=== PATIENT | female | born 1950 | race Caucasian/White ===

== ENCOUNTER 2017-08-18 13:30 | Outpatient (RCR) | payer MEDICARE, SELFPAY ==
[2017-08-11 13:27] VITALS: BP 162/94; PULSE 63; RESP 18; TEMP 36.9; BMI 46.4
--- NOTE | 2017-08-11 15:36 | PCM.WC.HP ---
(1) Non-pressure chronic ulcer of other part of right foot with fat layer exposed Status: Acute Current Visit: Yes Code(s): L97.512 - Non-pressure chronic ulcer of other part of right foot with fat layer exposed (2) Type 2 diabetes mellitus with foot ulcer Status: Acute Current Visit: Yes Qualifiers: Diabetes mellitus senior care insulin use: unspecified senior care insulin use status Qualified Code(s): E11.621 - Type 2 diabetes mellitus with foot ulcer; L97.509 - Non-pressure chronic ulcer of other part of unspecified foot with unspecified severity Code(s): E11.621 - Type 2 diabetes mellitus with foot ulcer; L97.509 - Non-pressure chronic ulcer of other part of unspecified foot with unspecified severity (3) Type 2 diabetes mellitus with diabetic peripheral angiopathy without gangrene Status: Chronic Current Visit: Yes Qualifiers: Diabetes mellitus senior care insulin use: unspecified long term care pharmacist insulin use status Qualified Code(s): E11.51 - Type 2 diabetes mellitus with diabetic peripheral angiopathy without gangrene Code(s): E11.51 - Type 2 diabetes mellitus with diabetic peripheral angiopathy without gangrene (4) Type 2 diabetes mellitus with diabetic polyneuropathy Status: Chronic Current Visit: Yes Qualifiers: Diabetes mellitus long term care pharmacist insulin use: unspecified long term care pharmacist insulin use status Qualified Code(s): E11.42 - Type 2 diabetes mellitus with diabetic polyneuropathy Code(s): E11.42 - Type 2 diabetes mellitus with diabetic polyneuropathy (5) Peripheral vascular disease Status: Chronic Current Visit: Yes Code(s): I73.9 - Peripheral vascular disease, unspecified History of Present Illness Date of Service: 08/11/17 Chief Complaint: Non-healing diabetic foot ulcer R great toe History of Wound: 67 year old woman with uncontrolled type 2 diabetes presents with non-healing diabetic foot ulcer plantar R great toe. Has a known history of PAD with multiple stent placements in the late 1990s and early 2000s. Has been treated at [facility] in [place] with promogran and dry dressing every other day. Offloading with CAM boot (not wearing today). Pt was to undergo an arterial bypass in 2014, but had an [place] 3 days before the procedure was to be done. Vascular surgeon is Dr. Herring in [place]. Pt denies pus, malodor, warmth, pain. Denies N/V/F/C. Past Medical History Past Medical History: Chronic Problems Type 2 diabetes mellitus with diabetic peripheral angiopathy without gangrene (Chronic) Type 2 diabetes mellitus with diabetic polyneuropathy (Chronic) Peripheral vascular disease (Chronic) Surgical History: - - Multiple stents placed in arteries of legs in late and early 1999s as well as coronary artery stent placement in 2014. Lives: Spouse/ Significant Other Smoking Status: Former smoker Tobacco Use: Cigarettes - (quit 6 years ago) Alcohol: Rare Drugs: None Review of Systems Constitutional: Denies: Chills, Fever, Weight Change Eyes: Denies: Pain, Vision Change HEENT: Denies: Difficulty Hearing, Difficulty Swallowing, Sinus Congestion Cardiovascular: Denies: Chest Pain, Palpitations Respiratory: Denies: Cough, Shortness of Breath Gastrointestinal: Denies: Diarrhea, Nausea, Vomiting Genitourinary: Denies: Dysuria, Hematuria Musculoskeletal: Denies: Foot Pain Skin: Reports: Wounds - R great toe Neurological: Reports: Numbness - toes Endocrine: Denies: Heat/ Cold Intolerance, Polydipsia, Polyuria Hematologic/ Lymphatic: Reports: Hx of blood clot. Denies: Easy Bruising, Easy Bleeding - Physical Exam Vital Signs Temp Pulse Resp BP 98.4 F 63 18 162/94 H 08/11/17 13:27 08/11/17 13:27 08/11/17 13:27 08/11/17 13:27 General: Alert, Oriented x3, Cooperative, No apparent distress HEENT: Atraumatic, Normocephalic Extremities: No clubbing, No cyanosis, No edema, No Calf Tenderness, Diminished Peripheral Pulses Skin: Ulcer/ Wound - Plantar medial R great toe IPJ with no erythema, no calor, no purulent drainage, no malodor, minimal pain. No clinical signs of acute bacterial infection noted. See wound/edema assessment below. Chung grade 1 full thickness DFU Wound Measurements and Assessment WC - Nurse 1 - General Ulcer Measurement Start: 08/11/17 13:27 Freq: Status: Active Protocol: Activity Type Activity Date Activity User E-Sign Co-Sign Detail Recorded Client Recorded Date Recorded By Document 08/11/17 13:27 DV [id number] 08/11/17 13:47 DV 08/11/17 13:27 Wound Center Nurse 1 [Ulcer Assessment] #1 Right Great Toe- Plantar -Combined with other wound No -Current Size (cm) - Length 0.5 -Current Size (cm) - Width 0.3 -Current Size (cm) - Depth 0.2 -Total Square Cm 0.15 -Date of Last Picture (Recall this 08/11/17 field) -Photo Taken Yes -Epithelialization None Present -Tunneling No -Undermining/Tunneling No -Circular Undermining Yes -Classification - Thickness Full Thickness without Exposed Support Structure -Classification - Chung Grading ( Grade 2 Diabetic Ulcer) -Exudate Amt Small (1-33%) -Exudate Type Serosanguineous -Wound Margin Indistinct, Non -Visible -Granulation Amt None Present (0 %) -Granulation Quality N/A -Slough/Fibrin Yes -Necrosis Amt Large (67-100%) -Necrotic Tissue Type Adherent Slough -Structure Exposed None/Limited to Skin Breakdown -Texture (Dimple-wound Skin Appearance) No Abnormality Assessed -Moisture (Dimple-wound Skin Appearance No Abnormality ) Assessed -Color (Dimple-wound Skin Appearance) No Abnormality Assessed -Temperature (Dimple-wound Skin Cool/Cold Appearance) -Tenderness on Palpation (Dimple-wound No Skin Appearance) -Ulcer Cleansing Rinsed/ Irrigated with Saline -Foul Odor after Cleansing No -Anesthetic Used 4% Lidocaine Solution [Edema Assessment] -Lower Limb Edema Present No -Right Calf (cm) 35.0 -Right Ankle (cm) 18.2 -Left Calf (cm) 36.6 -Left Ankle (cm) 18.7 WC - Nurse 2 - General Ulcer CM Notes Start: 08/11/17 13:27 Freq: Status: Active Protocol: Activity Type Activity Date Activity User E-Sign Co-Sign Detail Recorded Client Recorded Date Recorded By Document 08/11/17 14:05 MW [id number] 08/11/17 14:16 MW 08/11/17 14:05 Wound Center Nurse 2 [Procedure/Treatment] #1 Right Great Toe- Plantar -Time 14:05 -Correct Patient Yes -Correct Side, Site, Position Yes -Correct Procedure Yes -Procedure Performed No -Post Debridement Size (cm) - Length 0.5 -Post Debridement Size (cm) - Width 0.3 -Post Debridement Size (cm) - Depth 0.2 -Total Square Cm 0.15 -Wound/Ulcer Outcome Not Healed -Ulcer Cleansing Rinsed/ Irrigated with Saline -Foul Odor after Cleansing No -Bioengineered Tissue No -Bleeding Controlled with Pressure -Treatment Response Procedure Tolerated Well [See Physician Procedure note for Specifics] Pain Scale: 0-10 Numeric [Pain] -Is Patient Pain Free? Yes Musculoskeletal: No Tenderness to Palpation of Joints or Extremities, No Muscle Wasting Neurological: Deep Tendon Reflexes 2+/4 and Symmetrical, Motor Exam 5/5 strength throughout, Sensory exam intact to light touch and pain, Coordination normal, Gait narrow based and stable, - - LOPS to toes R foot Psych/Mental Status: Alert and oriented to time, place, person, mood and affect - wnl Debridement Note Post-Debridement Measurements/Treatment WC - Nurse 2 - General Ulcer CM Notes Start: 08/11/17 13:27 Freq: Status: Active Protocol: Activity Type Activity Date Activity User E-Sign Co-Sign Detail Recorded Client Recorded Date Recorded By Document 08/11/17 14:05 MW [id number] 08/11/17 14:16 MW 08/11/17 14:05 Wound Center Nurse 2 #1 Right Great Toe- Plantar -Time 14:05 -Correct Patient Yes -Correct Side, Site, Position Yes -Correct Procedure Yes -Procedure Performed No -Post Debridement Size (cm) - Length 0.5 -Post Debridement Size (cm) - Width 0.3 -Post Debridement Size (cm) - Depth 0.2 -Total Square Cm 0.15 -Wound/Ulcer Outcome Not Healed -Ulcer Cleansing Rinsed/ Irrigated with Saline -Foul Odor after Cleansing No -Bioengineered Tissue No -Bleeding Controlled with Pressure -Treatment Response Procedure Tolerated Well Pain Scale: 0-10 Numeric Is Patient Pain Free? Yes No debridement was completed today - due to PAD Assessment/Plan Active Problems Type 2 diabetes mellitus with diabetic peripheral angiopathy without gangrene (Chronic) Non-pressure chronic ulcer of other part of right foot with fat layer exposed (Acute) Type 2 diabetes mellitus with foot ulcer (Acute) Type 2 diabetes mellitus with diabetic polyneuropathy (Chronic) Peripheral vascular disease (Chronic) Assessment: See diagnoses Plan: EXECUTIVE ADVISOR exam. Sent for labs, vascular testing results, x-rays at [facility]. Stop promogran, start santyl and dry dressing given fibrous tissue in wound bed and non-healing since February. Continue to offload with CAM boot. Wear at all times--do not apply any weight to R foot without boot in place. Keep R great toe dry in shower, wash separately with dsg changes. Discussed importance of tighter blood sugar control, adequate nutrition especially increased protein intake to promote healing. Discussed risk of infection and possibility of amputations in diabetics with foot ulcerations especially in the setting of peripheral arterial disease. Pt understands this risk. Monitor for redness, pus, malodor, warmth, pain, swelling as well as for N/V/F/C. Pt states she follows with her vascular surgeon regularly, and he does not want to perform any revascularization procedures. He states he is going to refer her to physical therapy once this ulcer heals. Return in 1 week, call with questions.
--- NOTE | 2017-08-11 15:45 | HP.PCM_ITS ---
(1) Non-pressure chronic ulcer of other part of right foot with fat layer exposed Status: Acute Current Visit: Yes Code(s): L97.512 - Non-pressure chronic ulcer of other part of right foot with fat layer exposed (2) Type 2 diabetes mellitus with foot ulcer Status: Acute Current Visit: Yes Qualifiers: Diabetes mellitus mcc insulin use: unspecified mcc insulin use status Qualified Code(s): E11.621 - Type 2 diabetes mellitus with foot ulcer; L97.509 - Non-pressure chronic ulcer of other part of unspecified foot with unspecified severity Code(s): E11.621 - Type 2 diabetes mellitus with foot ulcer; L97.509 - Non- pressure chronic ulcer of other part of unspecified foot with unspecified severity (3) Type 2 diabetes mellitus with diabetic peripheral angiopathy without gangrene Status: Chronic Current Visit: Yes Qualifiers: Diabetes mellitus mcc insulin use: unspecified furnace cooler insulin use status Qualified Code(s): E11.51 - Type 2 diabetes mellitus with diabetic peripheral angiopathy without gangrene Code(s): E11.51 - Type 2 diabetes mellitus with diabetic peripheral angiopathy without gangrene (4) Type 2 diabetes mellitus with diabetic polyneuropathy Status: Chronic Current Visit: Yes Qualifiers: Diabetes mellitus furnace cooler insulin use: unspecified furnace cooler insulin use status Qualified Code(s): E11.42 - Type 2 diabetes mellitus with diabetic polyneuropathy Code(s): E11.42 - Type 2 diabetes mellitus with diabetic polyneuropathy (5) Peripheral vascular disease Status: Chronic Current Visit: Yes Code(s): I73.9 - Peripheral vascular disease, unspecified History of Present Illness Date of Service: 08/11/17 Chief Complaint: Non-healing diabetic foot ulcer R great toe History of Wound: 67 year old woman with uncontrolled type 2 diabetes presents with non-healing diabetic foot ulcer plantar R great toe. Has a known history of PAD with multiple stent placements in the late 1990s and early 2000s. Has been treated at [facility] in [place] with promogran and dry dressing every other day. Offloading with CAM boot (not wearing today). Pt was to undergo an arterial bypass in 2014, but had an [place] 3 days before the procedure was to be done. Vascular surgeon is Dr. Herring in [place]. Pt denies pus, malodor, warmth, pain. Denies N/V/F/C. Past Medical History Past Medical History: Chronic Problems Type 2 diabetes mellitus with diabetic peripheral angiopathy without gangrene ( Chronic) Type 2 diabetes mellitus with diabetic polyneuropathy (Chronic) Peripheral vascular disease (Chronic) Surgical History: - - Multiple stents placed in arteries of legs in late and early 1999s as well as coronary artery stent placement in 2014. Lives: Spouse/ Significant Other Smoking Status: Former smoker Tobacco Use: Cigarettes - (quit 6 years ago) Alcohol: Rare Drugs: None Review of Systems Constitutional: Denies: Chills, Fever, Weight Change Eyes: Denies: Pain, Vision Change HEENT: Denies: Difficulty Hearing, Difficulty Swallowing, Sinus Congestion Cardiovascular: Denies: Chest Pain, Palpitations Respiratory: Denies: Cough, Shortness of Breath Gastrointestinal: Denies: Diarrhea, Nausea, Vomiting Genitourinary: Denies: Dysuria, Hematuria Musculoskeletal: Denies: Foot Pain Skin: Reports: Wounds - R great toe Neurological: Reports: Numbness - toes Endocrine: Denies: Heat/ Cold Intolerance, Polydipsia, Polyuria Hematologic/ Lymphatic: Reports: Hx of blood clot. Denies: Easy Bruising, Easy Bleeding - Physical Exam Vital Signs Temp Pulse Resp BP 98.4 F 63 18 162/94 H 08/11/17 13:27 08/11/17 13:27 08/11/17 13:27 08/11/17 13:27 General: Alert, Oriented x3, Cooperative, No apparent distress HEENT: Atraumatic, Normocephalic Extremities: No clubbing, No cyanosis, No edema, No Calf Tenderness, Diminished Peripheral Pulses Skin: Ulcer/ Wound - Plantar medial R great toe IPJ with no erythema, no calor, no purulent drainage, no malodor, minimal pain. No clinical signs of acute bacterial infection noted. See wound/edema assessment below. Chung grade 1 full thickness DFU Wound Measurements and Assessment WC - Nurse 1 - General Ulcer Measurement Start: 08/11/17 13:27 Freq: Status: Active Protocol: Activity Type Activity Date Activity User E-Sign Co-Sign Detail Recorded Client Recorded Date Recorded By Document 08/11/17 13:27 DV [id number] 08/11/17 13:47 DV 08/11/17 13:27 Wound Center Nurse 1 [Ulcer Assessment] #1 Right Great Toe- Plantar -Combined with other wound No -Current Size (cm) - Length 0.5 -Current Size (cm) - Width 0.3 -Current Size (cm) - Depth 0.2 -Total Square Cm 0.15 -Date of Last Picture (Recall this 08/11/17 field) -Photo Taken Yes -Epithelialization None Present -Tunneling No -Undermining/Tunneling No -Circular Undermining Yes -Classification - Thickness Full Thickness without Exposed Support Structure -Classification - Chung Grading ( Grade 2 Diabetic Ulcer) -Exudate Amt Small (1-33%) -Exudate Type Serosanguineous -Wound Margin Indistinct, Non -Visible -Granulation Amt None Present (0 %) -Granulation Quality N/A -Slough/Fibrin Yes -Necrosis Amt Large (67-100%) -Necrotic Tissue Type Adherent Slough -Structure Exposed None/Limited to Skin Breakdown -Texture (Dimple-wound Skin Appearance) No Abnormality Assessed -Moisture (Dimple-wound Skin Appearance No Abnormality ) Assessed -Color (Dimple-wound Skin Appearance) No Abnormality Assessed -Temperature (Dimple-wound Skin Cool/Cold Appearance) -Tenderness on Palpation (Dimple-wound No Skin Appearance) -Ulcer Cleansing Rinsed/ Irrigated with Saline -Foul Odor after Cleansing No -Anesthetic Used 4% Lidocaine Solution [Edema Assessment] -Lower Limb Edema Present No -Right Calf (cm) 35.0 -Right Ankle (cm) 18.2 -Left Calf (cm) 36.6 -Left Ankle (cm) 18.7 WC - Nurse 2 - General Ulcer CM Notes Start: 08/11/17 13:27 Freq: Status: Active Protocol: Activity Type Activity Date Activity User E-Sign Co-Sign Detail Recorded Client Recorded Date Recorded By Document 08/11/17 14:05 MW [id number] 08/11/17 14:16 MW 08/11/17 14:05 Wound Center Nurse 2 [Procedure/Treatment] #1 Right Great Toe- Plantar -Time 14:05 -Correct Patient Yes -Correct Side, Site, Position Yes -Correct Procedure Yes -Procedure Performed No -Post Debridement Size (cm) - Length 0.5 -Post Debridement Size (cm) - Width 0.3 -Post Debridement Size (cm) - Depth 0.2 -Total Square Cm 0.15 -Wound/Ulcer Outcome Not Healed -Ulcer Cleansing Rinsed/ Irrigated with Saline -Foul Odor after Cleansing No -Bioengineered Tissue No -Bleeding Controlled with Pressure -Treatment Response Procedure Tolerated Well [See Physician Procedure note for Specifics] Pain Scale: 0-10 Numeric [Pain] -Is Patient Pain Free? Yes Musculoskeletal: No Tenderness to Palpation of Joints or Extremities, No Muscle Wasting Neurological: Deep Tendon Reflexes 2+/4 and Symmetrical, Motor Exam 5/5 strength throughout, Sensory exam intact to light touch and pain, Coordination normal, Gait narrow based and stable, - - LOPS to toes R foot Psych/Mental Status: Alert and oriented to time, place, person, mood and affect - wnl Debridement Note Post-Debridement Measurements/Treatment WC - Nurse 2 - General Ulcer CM Notes Start: 08/11/17 13:27 Freq: Status: Active Protocol: Activity Type Activity Date Activity User E-Sign Co-Sign Detail Recorded Client Recorded Date Recorded By Document 08/11/17 14:05 MW [id number] 08/11/17 14:16 MW 08/11/17 14:05 Wound Center Nurse 2 #1 Right Great Toe- Plantar -Time 14:05 -Correct Patient Yes -Correct Side, Site, Position Yes -Correct Procedure Yes -Procedure Performed No -Post Debridement Size (cm) - Length 0.5 -Post Debridement Size (cm) - Width 0.3 -Post Debridement Size (cm) - Depth 0.2 -Total Square Cm 0.15 -Wound/Ulcer Outcome Not Healed -Ulcer Cleansing Rinsed/ Irrigated with Saline -Foul Odor after Cleansing No -Bioengineered Tissue No -Bleeding Controlled with Pressure -Treatment Response Procedure Tolerated Well Pain Scale: 0-10 Numeric Is Patient Pain Free? Yes No debridement was completed today - due to PAD Assessment/Plan Active Problems Type 2 diabetes mellitus with diabetic peripheral angiopathy without gangrene ( Chronic) Non-pressure chronic ulcer of other part of right foot with fat layer exposed ( Acute) Type 2 diabetes mellitus with foot ulcer (Acute) Type 2 diabetes mellitus with diabetic polyneuropathy (Chronic) Peripheral vascular disease (Chronic) Assessment: See diagnoses Plan: RFID STRATEGIST exam. Sent for labs, vascular testing results, x-rays at [facility]. Stop promogran, start santyl and dry dressing given fibrous tissue in wound bed and non-healing since February. Continue to offload with CAM boot. Wear at all times--do not apply any weight to R foot without boot in place. Keep R great toe dry in shower, wash separately with dsg changes. Discussed importance of tighter blood sugar control, adequate nutrition especially increased protein intake to promote healing. Discussed risk of infection and possibility of amputations in diabetics with foot ulcerations especially in the setting of peripheral arterial disease. Pt understands this risk. Monitor for redness, pus, malodor, warmth, pain, swelling as well as for N/V/F/C. Pt states she follows with her vascular surgeon regularly, and he does not want to perform any revascularization procedures. He states he is going to refer her to physical therapy once this ulcer heals. Return in 1 week, call with questions.
[2017-08-18 13:12] VITALS: BP 166/74; PULSE 75; RESP 18; TEMP 36.2; BMI 46.4
--- NOTE | 2017-08-18 14:29 | PCM.WC.PN ---
(1) Non-pressure chronic ulcer of other part of right foot with fat layer exposed Status: Acute Current Visit: Yes Code(s): L97.512 - Non-pressure chronic ulcer of other part of right foot with fat layer exposed (2) Type 2 diabetes mellitus with foot ulcer Status: Acute Current Visit: Yes Qualifiers: Diabetes mellitus correction insulin use: unspecified correction insulin use status Qualified Code(s): E11.621 - Type 2 diabetes mellitus with foot ulcer; L97.509 - Non-pressure chronic ulcer of other part of unspecified foot with unspecified severity Code(s): E11.621 - Type 2 diabetes mellitus with foot ulcer; L97.509 - Non-pressure chronic ulcer of other part of unspecified foot with unspecified severity (3) Type 2 diabetes mellitus with diabetic peripheral angiopathy without gangrene Status: Chronic Current Visit: Yes Qualifiers: Diabetes mellitus correction insulin use: unspecified 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 Qualified Code(s): E11.51 - Type 2 diabetes mellitus with diabetic peripheral angiopathy without gangrene Code(s): E11.51 - Type 2 diabetes mellitus with diabetic peripheral angiopathy without gangrene (4) Type 2 diabetes mellitus with diabetic polyneuropathy Status: Chronic Current Visit: Yes Qualifiers: Diabetes mellitus 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 Has a known history of PAD with multiple stent placements in the late 1990s and early 2000s. Has been treated at [facility] in [place] with promogran and dry dressing every other day. Offloading with CAM boot (not wearing today). Pt was to undergo an arterial bypass in 2014, but had an [place] 3 days before the procedure was to be done. Vascular surgeon is Dr. Herring in [place]. Pt denies pus, malodor, warmth, pain. Denies N/V/F/C. 08/18--Received Santyl on , and has been applying with dry gauze daily. Currently offloading with CAM boot with peg-assist offloading insert. Measurements improved today. Progress of Wound: Improved today. - Physical Exam Vital Signs Temp Pulse Resp BP 97.1 F L 75 18 166/74 H 08/18/17 13:12 08/18/17 13:12 08/18/17 13:12 08/18/17 13:12 General: Alert, Oriented x3, Cooperative, No apparent distress Skin: Ulcer/ Wound - Plantar medial R great toe IPJ with no erythema, no calor, no purulent drainage, no malodor, minimal pain. No clinical signs of acute bacterial infection noted. See wound/edema assessment below. Wound Measurements and Assessment WC - Nurse 1 - General Ulcer Measurement Start: 08/11/17 13:27 Freq: Status: Active Protocol: Activity Type Activity Date Activity User E-Sign Co-Sign Detail Recorded Client Recorded Date Recorded By Document 08/18/17 13:12 [facility] [id number] 08/18/17 13:15 [facility] 08/18/17 13:12 Wound Center Nurse 1 [Ulcer Assessment] #1 Right Great Toe- Plantar -Combined with other wound No -Current Size (cm) - Length 0.5 -Current Size (cm) - Width 0.4 -Current Size (cm) - Depth 0.1 -Total Square Cm 0.20 -Photo Taken No -Epithelialization Small 1-33% -Tunneling No -Undermining/Tunneling No -Circular Undermining No -Exudate Amt Small (1-33%) -Exudate Type Serosanguineous -Wound Margin Distinct, Outline Attached -Granulation Amt Large (67-100%) -Granulation Quality Pale [place] -Slough/Fibrin No -Necrosis Amt None Present (0 %) -Structure Exposed None/Limited to Skin Breakdown -Texture (Dimple-wound Skin Appearance) Callus -Moisture (Dimple-wound Skin Appearance Maceration ) Dry/Scaly -Color (Dimple-wound Skin Appearance) Palor -Temperature (Dimple-wound Skin No Abnormality Appearance) (Pt Warm) -Tenderness on Palpation (Dimple-wound No Skin Appearance) -Ulcer Cleansing Rinsed/ Irrigated with Saline -Foul Odor after Cleansing No -Anesthetic Used 5% Lidocaine Gel WC - Nurse 2 - General Ulcer CM Notes Start: 08/11/17 13:27 Freq: Status: Active Protocol: Activity Type Activity Date Activity User E-Sign Co-Sign Detail Recorded Client Recorded Date Recorded By Document 08/18/17 13:53 DV [id number] 08/18/17 13:55 DV 08/18/17 13:53 Wound Center Nurse 2 [Procedure/Treatment] -Time 13:53 -Correct Patient Yes -Procedure Performed No -Post Debridement Size (cm) - Length 0.4 -Post Debridement Size (cm) - Width 0.4 -Post Debridement Size (cm) - Depth 0.1 -Total Square Cm 0.16 -Wound/Ulcer Outcome Not Healed -Ulcer Cleansing Rinsed/ Irrigated with Saline -Foul Odor after Cleansing No -Bioengineered Tissue No -Bleeding Controlled with NA -Other C. SANTYL -Treatment Response Procedure Tolerated Well [See Physician Procedure note for Specifics] Pain Scale: 0-10 Numeric [Pain] -Is Patient Pain Free? Yes Debridement Note Post-Debridement Measurements/Treatment - Nurse 2 - General Ulcer CM Notes Start: 08/11/17 13:27 Freq: Status: Active Protocol: Activity Type Activity Date Activity User E-Sign Co-Sign Detail Recorded Client Recorded Date Recorded By Document 08/11/17 14:05 MW [id number] 08/11/17 14:16 MW Document 08/18/17 13:53 DV [id number] 08/18/17 13:55 DV 08/11/17 08/18/17 14:05 13:53 Wound Center Nurse 2 #1 Right Great Toe- Plantar -Time 14:05 13:53 -Correct Patient Yes Yes -Correct Side, Site, Position Yes -Correct Procedure Yes -Procedure Performed No No -Post Debridement Size (cm) - Length 0.5 0.4 -Post Debridement Size (cm) - Width 0.3 0.4 -Post Debridement Size (cm) - Depth 0.2 0.1 -Total Square Cm 0.15 0.16 -Wound/Ulcer Outcome Not Healed Not Healed -Ulcer Cleansing Rinsed/ Rinsed/ Irrigated with Irrigated with Saline Saline -Foul Odor after Cleansing No No -Bioengineered Tissue No No -Bleeding Controlled with Pressure NA -Other C. SANTYL -Treatment Response Procedure Procedure Tolerated Well Tolerated Well Pain Scale: 0-10 Numeric Is Patient Pain Free? Yes Yes No debridement was completed today - given history of PAD Assessment/Plan Active Problems Type 2 diabetes mellitus with diabetic peripheral angiopathy without gangrene (Chronic) Non-pressure chronic ulcer of other part of right foot with fat layer exposed (Acute) Type 2 diabetes mellitus with foot ulcer (Acute) Type 2 diabetes mellitus with diabetic polyneuropathy (Chronic) Peripheral vascular disease (Chronic) Assessment: See diagnoses Plan: Exam. A total of 25 minutes was spent [id number] with the patient and her , and over half of that time was spent on counseling, coordination of care, and discussing her diagnoses. Sent for labs, vascular testing results, x-rays at [facility] last week--Have not yet received. Cont santyl and add lightly moistened gauze dressing on top. No sharp debridement performed due to history of PAD and ulcer is improving with enzymatic debridement with Santyl. Continue to offload with CAM boot. Wear at all times--do not apply any weight to R foot without boot in place. Keep R great toe dry in shower, wash separately with dsg changes. Discussed importance of tighter blood sugar control, adequate nutrition especially increased protein intake to promote healing. Discussed risk of infection and possibility of amputations including limb loss in diabetics with foot ulcerations especially with peripheral arterial disease. Pt understands this risk. Monitor for redness, pus, malodor, warmth, pain, swelling as well as for N/V/F/C. Pt states she follows with her vascular surgeon regularly, and he does not want to perform any revascularization procedures. He states he is going to refer her to physical therapy once this ulcer heals. Pt aware today is my last day at the wound center. Return in 1 week, call with questions.
--- NOTE | 2017-08-18 14:33 | PN.PCM_ITS ---
(1) Non-pressure chronic ulcer of other part of right foot with fat layer exposed Status: Acute Current Visit: Yes Code(s): L97.512 - Non-pressure chronic ulcer of other part of right foot with fat layer exposed (2) Type 2 diabetes mellitus with foot ulcer Status: Acute Current Visit: Yes Qualifiers: Diabetes mellitus prison insulin use: unspecified prison insulin use status Qualified Code(s): E11.621 - Type 2 diabetes mellitus with foot ulcer; L97.509 - Non-pressure chronic ulcer of other part of unspecified foot with unspecified severity Code(s): E11.621 - Type 2 diabetes mellitus with foot ulcer; L97.509 - Non- pressure chronic ulcer of other part of unspecified foot with unspecified severity (3) Type 2 diabetes mellitus with diabetic peripheral angiopathy without gangrene Status: Chronic Current Visit: Yes Qualifiers: Diabetes mellitus prison insulin use: unspecified watermaster insulin use status Qualified Code(s): E11.51 - Type 2 diabetes mellitus with diabetic peripheral angiopathy without gangrene Code(s): E11.51 - Type 2 diabetes mellitus with diabetic peripheral angiopathy without gangrene (4) Type 2 diabetes mellitus with diabetic polyneuropathy Status: Chronic Current Visit: Yes Qualifiers: Diabetes mellitus watermaster insulin use: unspecified watermaster insulin use status Qualified Code(s): E11.42 - Type 2 diabetes mellitus with diabetic polyneuropathy Code(s): E11.42 - Type 2 diabetes mellitus with diabetic polyneuropathy (5) Peripheral vascular disease Status: Chronic Current Visit: Yes Code(s): I73.9 - Peripheral vascular disease, unspecified Type of Wound Date of Service: 08/18/17 Chief Complaint: Non-healing diabetic foot ulcer R great toe History of Wound: 67 year old woman with uncontrolled type 2 diabetes presents with non-healing diabetic foot ulcer plantar R great toe. Has a known history of PAD with multiple stent placements in the late 1990s and early 2000s. Has been treated at [facility] in [place] with promogran and dry dressing every other day. Offloading with CAM boot (not wearing today). Pt was to undergo an arterial bypass in 2014, but had an [place] 3 days before the procedure was to be done. Vascular surgeon is Dr. Herring in [place]. Pt denies pus, malodor, warmth, pain. Denies N/V/F/C. 08/18--Received Santyl on , and has been applying with dry gauze daily. Currently offloading with CAM boot with peg-assist offloading insert. Measurements improved today. Progress of Wound: Improved today. - Physical Exam Vital Signs Temp Pulse Resp BP 97.1 F L 75 18 166/74 H 08/18/17 13:12 08/18/17 13:12 08/18/17 13:12 08/18/17 13:12 General: Alert, Oriented x3, Cooperative, No apparent distress Skin: Ulcer/ Wound - Plantar medial R great toe IPJ with no erythema, no calor, no purulent drainage, no malodor, minimal pain. No clinical signs of acute bacterial infection noted. See wound/edema assessment below. Wound Measurements and Assessment WC - Nurse 1 - General Ulcer Measurement Start: 08/11/17 13:27 Freq: Status: Active Protocol: Activity Type Activity Date Activity User E-Sign Co-Sign Detail Recorded Client Recorded Date Recorded By Document 08/18/17 13:12 [facility] [id number] 08/18/17 13:15 [facility] 08/18/17 13:12 Wound Center Nurse 1 [Ulcer Assessment] #1 Right Great Toe- Plantar -Combined with other wound No -Current Size (cm) - Length 0.5 -Current Size (cm) - Width 0.4 -Current Size (cm) - Depth 0.1 -Total Square Cm 0.20 -Photo Taken No -Epithelialization Small 1-33% -Tunneling No -Undermining/Tunneling No -Circular Undermining No -Exudate Amt Small (1-33%) -Exudate Type Serosanguineous -Wound Margin Distinct, Outline Attached -Granulation Amt Large (67-100%) -Granulation Quality Pale [place] -Slough/Fibrin No -Necrosis Amt None Present (0 %) -Structure Exposed None/Limited to Skin Breakdown -Texture (Dimple-wound Skin Appearance) Callus -Moisture (Dimple-wound Skin Appearance Maceration ) Dry/Scaly -Color (Dimple-wound Skin Appearance) Palor -Temperature (Dimple-wound Skin No Abnormality Appearance) (Pt Warm) -Tenderness on Palpation (Dimple-wound No Skin Appearance) -Ulcer Cleansing Rinsed/ Irrigated with Saline -Foul Odor after Cleansing No -Anesthetic Used 5% Lidocaine Gel WC - Nurse 2 - General Ulcer CM Notes Start: 08/11/17 13:27 Freq: Status: Active Protocol: Activity Type Activity Date Activity User E-Sign Co-Sign Detail Recorded Client Recorded Date Recorded By Document 08/18/17 13:53 DV [id number] 08/18/17 13:55 DV 08/18/17 13:53 Wound Center Nurse 2 [Procedure/Treatment] -Time 13:53 -Correct Patient Yes -Procedure Performed No -Post Debridement Size (cm) - Length 0.4 -Post Debridement Size (cm) - Width 0.4 -Post Debridement Size (cm) - Depth 0.1 -Total Square Cm 0.16 -Wound/Ulcer Outcome Not Healed -Ulcer Cleansing Rinsed/ Irrigated with Saline -Foul Odor after Cleansing No -Bioengineered Tissue No -Bleeding Controlled with NA -Other C. SANTYL -Treatment Response Procedure Tolerated Well [See Physician Procedure note for Specifics] Pain Scale: 0-10 Numeric [Pain] -Is Patient Pain Free? Yes Debridement Note Post-Debridement Measurements/Treatment - Nurse 2 - General Ulcer CM Notes Start: 08/11/17 13:27 Freq: Status: Active Protocol: Activity Type Activity Date Activity User E-Sign Co-Sign Detail Recorded Client Recorded Date Recorded By Document 08/11/17 14:05 MW [id number] 08/11/17 14:16 MW Document 08/18/17 13:53 DV [id number] 08/18/17 13:55 DV 08/11/17 08/18/17 14:05 13:53 Wound Center Nurse 2 #1 Right Great Toe- Plantar -Time 14:05 13:53 -Correct Patient Yes Yes -Correct Side, Site, Position Yes -Correct Procedure Yes -Procedure Performed No No -Post Debridement Size (cm) - Length 0.5 0.4 -Post Debridement Size (cm) - Width 0.3 0.4 -Post Debridement Size (cm) - Depth 0.2 0.1 -Total Square Cm 0.15 0.16 -Wound/Ulcer Outcome Not Healed Not Healed -Ulcer Cleansing Rinsed/ Rinsed/ Irrigated with Irrigated with Saline Saline -Foul Odor after Cleansing No No -Bioengineered Tissue No No -Bleeding Controlled with Pressure NA -Other C. SANTYL -Treatment Response Procedure Procedure Tolerated Well Tolerated Well Pain Scale: 0-10 Numeric Is Patient Pain Free? Yes Yes No debridement was completed today - given history of PAD Assessment/Plan Active Problems Type 2 diabetes mellitus with diabetic peripheral angiopathy without gangrene ( Chronic) Non-pressure chronic ulcer of other part of right foot with fat layer exposed ( Acute) Type 2 diabetes mellitus with foot ulcer (Acute) Type 2 diabetes mellitus with diabetic polyneuropathy (Chronic) Peripheral vascular disease (Chronic) Assessment: See diagnoses Plan: Exam. A total of 25 minutes was spent [id number] with the patient and her , and over half of that time was spent on counseling, coordination of care, and discussing her diagnoses. Sent for labs, vascular testing results, x-rays at [facility] last week--Have not yet received. Cont santyl and add lightly moistened gauze dressing on top. No sharp debridement performed due to history of PAD and ulcer is improving with enzymatic debridement with Santyl. Continue to offload with CAM boot. Wear at all times--do not apply any weight to R foot without boot in place. Keep R great toe dry in shower, wash separately with dsg changes. Discussed importance of tighter blood sugar control, adequate nutrition especially increased protein intake to promote healing. Discussed risk of infection and possibility of amputations including limb loss in diabetics with foot ulcerations especially with peripheral arterial disease. Pt understands this risk. Monitor for redness, pus, malodor, warmth, pain, swelling as well as for N/V/F/C. Pt states she follows with her vascular surgeon regularly, and he does not want to perform any revascularization procedures. He states he is going to refer her to physical therapy once this ulcer heals. Pt aware today is my last day at the wound center. Return in 1 week, call with questions.
== END 2017-08-24 23:59 ==
LOC: WC 13:30
PROVIDERS: Family Provider Family Medicine; PCP Family Medicine; Visit Provider Internal Medicine
DX: E11.621 Type 2 diabetes mellitus with foot ulcer (principal); L97.512 Non-pressure chronic ulcer of other part of right foot with fat layer exposed; E11.51 Type 2 diabetes mellitus with diabetic peripheral angiopathy without gangrene; E11.42 Type 2 diabetes mellitus with diabetic polyneuropathy; E11.65 Type 2 diabetes mellitus with hyperglycemia; I25.2 Old myocardial infarction
CPT/HCPCS: 97602; 99203; 99213; G0463

== ENCOUNTER 2017-09-10 11:00 | Outpatient (RCR) | payer MEDICARE, SELFPAY ==
[2017-08-25 01:13] VITALS: PULSE 75; RESP 18; TEMP 36.2
[2017-08-27 11:03] VITALS: BP 124/66; PULSE 67; RESP 18; TEMP 36.6
--- NOTE | 2017-08-27 18:37 | PCM.WC.PN ---
(1) Non-pressure chronic ulcer of other part of right foot with fat layer exposed Status: Acute Current Visit: Yes Code(s): L97.512 - Non-pressure chronic ulcer of other part of right foot with fat layer exposed (2) Type 2 diabetes mellitus with foot ulcer Status: Acute Current Visit: Yes Qualifiers: Code(s): E11.621 - Type 2 diabetes mellitus with foot ulcer; L97.509 - Non-pressure chronic ulcer of other part of unspecified foot with unspecified severity (3) Peripheral vascular disease Status: Chronic Current Visit: Yes Code(s): I73.9 - Peripheral vascular disease, unspecified (4) Type 2 diabetes mellitus with diabetic peripheral angiopathy without gangrene Status: Chronic Current Visit: Yes Qualifiers: Code(s): E11.51 - Type 2 diabetes mellitus with diabetic peripheral angiopathy without gangrene (5) Type 2 diabetes mellitus with diabetic polyneuropathy Status: Chronic Current Visit: Yes Qualifiers: Code(s): E11.42 - Type 2 diabetes mellitus with diabetic polyneuropathy Type of Wound Date of Service: 08/27/17 Chief Complaint: Non-healing diabetic foot ulcer R great toe History of Wound: 67 year old woman with uncontrolled type 2 diabetes presents with non-healing diabetic foot ulcer plantar R great toe. Has a known history of PAD with multiple stent placements in the late 1990s and early 1999s. Has been treated at [facility] in [place] with promogran and dry dressing every other day. Offloading with CAM boot (not wearing today). Pt was to undergo an arterial bypass in 2014, but had an [place] 3 days before the procedure was to be done. Vascular surgeon is Dr. Herring in [place]. Pt denies pus, malodor, warmth, pain. Denies N/V/F/C. 08/18--Received Santyl on , and has been applying with dry gauze daily. Currently offloading with CAM boot with peg-assist offloading insert. Measurements improved today. Progress of Wound: Had previously been seen by Dr. Smith. First visit with me today. No new changes. Currently is on Santyl to her right plantar ulcer. She denies any malodorous discharge noted. - Physical Exam Vital Signs Temp Pulse Resp BP 98 F 67 18 124/66 H 08/27/17 11:03 08/27/17 11:03 08/27/17 11:03 08/27/17 11:03 General: Alert, Oriented x3, Cooperative, No apparent distress HEENT: Atraumatic, Normocephalic Oral: Moist Mucosa Neck: Supple Lungs: Clear to auscultation, Normal air movement Cardiovascular: Regular rate Abdomen: Soft, Non Tender, Obese Extremities: No cyanosis Skin: Ulcer/ Wound Wound Measurements and Assessment WC - Nurse 1 - General Ulcer Measurement Start: 08/27/17 11:03 Freq: Status: Active Protocol: Activity Type Activity Date Activity User E-Sign Co-Sign Detail Recorded Client Recorded Date Recorded By Document 08/27/17 11:03 RB [id number] 08/27/17 11:17 RB 08/27/17 11:03 Wound Center Nurse 1 [Ulcer Assessment] #1 Right Great Toe- Plantar -Combined with other wound No -Current Size (cm) - Length 0.4 -Current Size (cm) - Width 0.3 -Current Size (cm) - Depth 0.1 -Total Square Cm 0.12 -Photo Taken No -Tunneling No -Undermining/Tunneling No -Circular Undermining No -Classification - Chung Grading ( Grade 2 Diabetic Ulcer) -Exudate Amt Small (1-33%) -Exudate Type Serosanguineous -Wound Margin Thickened -Granulation Amt Medium (34-66%) -Granulation Quality [place] -Slough/Fibrin Yes -Necrosis Amt Medium (34-66%) -Necrotic Tissue Type Adherent Slough -Structure Exposed N/A -Texture (Dimple-wound Skin Appearance) Assessed Callus -Moisture (Dimple-wound Skin Appearance Assessed ) -Color (Dimple-wound Skin Appearance) Assessed -Temperature (Dimple-wound Skin No Abnormality Appearance) (Pt Warm) -Tenderness on Palpation (Dimple-wound No Skin Appearance) -Ulcer Cleansing Rinsed/ Irrigated with Saline -Foul Odor after Cleansing No -Anesthetic Used 5% Lidocaine Gel [Edema Assessment] -Lower Limb Edema Present Yes -Right Calf (cm) 34.5 -Right Ankle (cm) 18.5 WC - Nurse 2 - General Ulcer CM Notes Start: 08/27/17 11:03 Freq: Status: Active Protocol: Activity Type Activity Date Activity User E-Sign Co-Sign Detail Recorded Client Recorded Date Recorded By Document 08/27/17 12:07 DV [id number] 08/27/17 12:10 DV 08/27/17 12:07 Wound Center Nurse 2 [Procedure/Treatment] #1 Right Great Toe- Plantar -Time 12:07 -Correct Patient Yes -Correct Side, Site, Position Yes -Correct Procedure Yes -Procedure Performed Yes -Type of Procedure Debridement -Clinical Debridement Subcutaneous -Post Debridement Size (cm) - Length 0.5 -Post Debridement Size (cm) - Width 0.3 -Post Debridement Size (cm) - Depth 0.3 -Total Square Cm 0.15 -Wound/Ulcer Outcome Not Healed -Ulcer Cleansing Rinsed/ Irrigated with Saline -Foul Odor after Cleansing No -Bioengineered Tissue No -Bleeding Controlled with Pressure -Treatment Response Procedure Tolerated Well [See Physician Procedure note for Specifics] Pain Scale: 0-10 Numeric [Pain] -Is Patient Pain Free? Yes Musculoskeletal: No Muscle Wasting Neurological: Cranial nerves II-XII grossly intact Psych/Mental Status: Normal Affect Debridement Note Post-Debridement Measurements/Treatment WC - Nurse 2 - General Ulcer CM Notes Start: 08/27/17 11:03 Freq: Status: Active Protocol: Activity Type Activity Date Activity User E-Sign Co-Sign Detail Recorded Client Recorded Date Recorded By Document 08/27/17 12:07 DV [id number] 08/27/17 12:10 DV 08/27/17 12:07 Wound Center Nurse 2 #1 Right Great Toe- Plantar -Time 12:07 -Correct Patient Yes -Correct Side, Site, Position Yes -Correct Procedure Yes -Procedure Performed Yes -Type of Procedure Debridement -Clinical Debridement Subcutaneous -Post Debridement Size (cm) - Length 0.5 -Post Debridement Size (cm) - Width 0.3 -Post Debridement Size (cm) - Depth 0.3 -Total Square Cm 0.15 -Wound/Ulcer Outcome Not Healed -Ulcer Cleansing Rinsed/ Irrigated with Saline -Foul Odor after Cleansing No -Bioengineered Tissue No -Bleeding Controlled with Pressure -Treatment Response Procedure Tolerated Well Pain Scale: 0-10 Numeric Is Patient Pain Free? Yes Wound debrided: Right Great Toe Plantar Wound Grade/Stage: Chung I Type of Debridement: Selective debridement Anesthesia Used: 5% Lidocaine Gel Depth: Down to and including healthy tissue Percentage of wound debrided: 80 Instrument Used: 3mm curette Tissue Removed: devitalized tissue Severity: Fat Layer Exposed Amount of bleeding with debridement: None Patient tolerated procedure well Assessment/Plan Active Problems Type 2 diabetes mellitus with diabetic peripheral angiopathy without gangrene (Chronic) Non-pressure chronic ulcer of other part of right foot with fat layer exposed (Acute) Type 2 diabetes mellitus with foot ulcer (Acute) Type 2 diabetes mellitus with diabetic polyneuropathy (Chronic) Peripheral vascular disease (Chronic) Assessment: See diagnoses Plan: No significant cahnges in the past week. Minimal debridement performed due to history of PAD and ulcer is improving with enzymatic debridement with Santyl. Continue santyl daily. Continue to offload with CAM boot. Wear at all times--do not apply any weight to R foot without boot in place. Keep R great toe dry in shower, wash separately with dsg changes. Optimal blood sugar control. Continue increased dietary protein and supplements. Increased risk for non healing and amputation has been discussed with patient due to her co morbidities. Continue close follow up with vascular surgeon. Follow up in 1 week. This note was generated with [employer] dictation software. It may contain incorrect words, spelling, and punctuation that were not noted in checking the note before signing.
--- NOTE | 2017-08-27 18:46 | PN.PCM_ITS ---
(1) Non-pressure chronic ulcer of other part of right foot with fat layer exposed Status: Acute Current Visit: Yes Code(s): L97.512 - Non-pressure chronic ulcer of other part of right foot with fat layer exposed (2) Type 2 diabetes mellitus with foot ulcer Status: Acute Current Visit: Yes Qualifiers: Code(s): E11.621 - Type 2 diabetes mellitus with foot ulcer; L97.509 - Non- pressure chronic ulcer of other part of unspecified foot with unspecified severity (3) Peripheral vascular disease Status: Chronic Current Visit: Yes Code(s): I73.9 - Peripheral vascular disease, unspecified (4) Type 2 diabetes mellitus with diabetic peripheral angiopathy without gangrene Status: Chronic Current Visit: Yes Qualifiers: Code(s): E11.51 - Type 2 diabetes mellitus with diabetic peripheral angiopathy without gangrene (5) Type 2 diabetes mellitus with diabetic polyneuropathy Status: Chronic Current Visit: Yes Qualifiers: Code(s): E11.42 - Type 2 diabetes mellitus with diabetic polyneuropathy Type of Wound Date of Service: 08/27/17 Chief Complaint: Non-healing diabetic foot ulcer R great toe History of Wound: 67 year old woman with uncontrolled type 2 diabetes presents with non-healing diabetic foot ulcer plantar R great toe. Has a known history of PAD with multiple stent placements in the late 1990s and early 1999s. Has been treated at [facility] in [place] with promogran and dry dressing every other day. Offloading with CAM boot (not wearing today). Pt was to undergo an arterial bypass in 2014, but had an [place] 3 days before the procedure was to be done. Vascular surgeon is Dr. Herring in [place]. Pt denies pus, malodor, warmth, pain. Denies N/V/F/C. 08/18--Received Santyl on , and has been applying with dry gauze daily. Currently offloading with CAM boot with peg-assist offloading insert. Measurements improved today. Progress of Wound: Had previously been seen by Dr. Smith. First visit with me today. No new changes. Currently is on Santyl to her right plantar ulcer. She denies any malodorous discharge noted. - Physical Exam Vital Signs Temp Pulse Resp BP 98 F 67 18 124/66 H 08/27/17 11:03 08/27/17 11:03 08/27/17 11:03 08/27/17 11:03 General: Alert, Oriented x3, Cooperative, No apparent distress HEENT: Atraumatic, Normocephalic Oral: Moist Mucosa Neck: Supple Lungs: Clear to auscultation, Normal air movement Cardiovascular: Regular rate Abdomen: Soft, Non Tender, Obese Extremities: No cyanosis Skin: Ulcer/ Wound Wound Measurements and Assessment WC - Nurse 1 - General Ulcer Measurement Start: 08/27/17 11:03 Freq: Status: Active Protocol: Activity Type Activity Date Activity User E-Sign Co-Sign Detail Recorded Client Recorded Date Recorded By Document 08/27/17 11:03 RB [id number] 08/27/17 11:17 RB 08/27/17 11:03 Wound Center Nurse 1 [Ulcer Assessment] #1 Right Great Toe- Plantar -Combined with other wound No -Current Size (cm) - Length 0.4 -Current Size (cm) - Width 0.3 -Current Size (cm) - Depth 0.1 -Total Square Cm 0.12 -Photo Taken No -Tunneling No -Undermining/Tunneling No -Circular Undermining No -Classification - Chung Grading ( Grade 2 Diabetic Ulcer) -Exudate Amt Small (1-33%) -Exudate Type Serosanguineous -Wound Margin Thickened -Granulation Amt Medium (34-66%) -Granulation Quality Darby -Slough/Fibrin Yes -Necrosis Amt Medium (34-66%) -Necrotic Tissue Type Adherent Slough -Structure Exposed N/A -Texture (Dimple-wound Skin Appearance) Assessed Callus -Moisture (Dimple-wound Skin Appearance Assessed ) -Color (Dimple-wound Skin Appearance) Assessed -Temperature (Dimple-wound Skin No Abnormality Appearance) (Pt Warm) -Tenderness on Palpation (Dimple-wound No Skin Appearance) -Ulcer Cleansing Rinsed/ Irrigated with Saline -Foul Odor after Cleansing No -Anesthetic Used 5% Lidocaine Gel [Edema Assessment] -Lower Limb Edema Present Yes -Right Calf (cm) 34.5 -Right Ankle (cm) 18.5 WC - Nurse 2 - General Ulcer CM Notes Start: 08/27/17 11:03 Freq: Status: Active Protocol: Activity Type Activity Date Activity User E-Sign Co-Sign Detail Recorded Client Recorded Date Recorded By Document 08/27/17 12:07 DV [id number] 08/27/17 12:10 DV 08/27/17 12:07 Wound Center Nurse 2 [Procedure/Treatment] #1 Right Great Toe- Plantar -Time 12:07 -Correct Patient Yes -Correct Side, Site, Position Yes -Correct Procedure Yes -Procedure Performed Yes -Type of Procedure Debridement -Clinical Debridement Subcutaneous -Post Debridement Size (cm) - Length 0.5 -Post Debridement Size (cm) - Width 0.3 -Post Debridement Size (cm) - Depth 0.3 -Total Square Cm 0.15 -Wound/Ulcer Outcome Not Healed -Ulcer Cleansing Rinsed/ Irrigated with Saline -Foul Odor after Cleansing No -Bioengineered Tissue No -Bleeding Controlled with Pressure -Treatment Response Procedure Tolerated Well [See Physician Procedure note for Specifics] Pain Scale: 0-10 Numeric [Pain] -Is Patient Pain Free? Yes Musculoskeletal: No Muscle Wasting Neurological: Cranial nerves II-XII grossly intact Psych/Mental Status: Normal Affect Debridement Note Post-Debridement Measurements/Treatment WC - Nurse 2 - General Ulcer CM Notes Start: 08/27/17 11:03 Freq: Status: Active Protocol: Activity Type Activity Date Activity User E-Sign Co-Sign Detail Recorded Client Recorded Date Recorded By Document 08/27/17 12:07 DV [id number] 08/27/17 12:10 DV 08/27/17 12:07 Wound Center Nurse 2 #1 Right Great Toe- Plantar -Time 12:07 -Correct Patient Yes -Correct Side, Site, Position Yes -Correct Procedure Yes -Procedure Performed Yes -Type of Procedure Debridement -Clinical Debridement Subcutaneous -Post Debridement Size (cm) - Length 0.5 -Post Debridement Size (cm) - Width 0.3 -Post Debridement Size (cm) - Depth 0.3 -Total Square Cm 0.15 -Wound/Ulcer Outcome Not Healed -Ulcer Cleansing Rinsed/ Irrigated with Saline -Foul Odor after Cleansing No -Bioengineered Tissue No -Bleeding Controlled with Pressure -Treatment Response Procedure Tolerated Well Pain Scale: 0-10 Numeric Is Patient Pain Free? Yes Wound debrided: Right Great Toe Plantar Wound Grade/Stage: Chung I Type of Debridement: Selective debridement Anesthesia Used: 5% Lidocaine Gel Depth: Down to and including healthy tissue Percentage of wound debrided: 80 Instrument Used: 3mm curette Tissue Removed: devitalized tissue Severity: Fat Layer Exposed Amount of bleeding with debridement: None Patient tolerated procedure well Assessment/Plan Active Problems Type 2 diabetes mellitus with diabetic peripheral angiopathy without gangrene ( Chronic) Non-pressure chronic ulcer of other part of right foot with fat layer exposed ( Acute) Type 2 diabetes mellitus with foot ulcer (Acute) Type 2 diabetes mellitus with diabetic polyneuropathy (Chronic) Peripheral vascular disease (Chronic) Assessment: See diagnoses Plan: No significant cahnges in the past week. Minimal debridement performed due to history of PAD and ulcer is improving with enzymatic debridement with Santyl. Continue santyl daily. Continue to offload with CAM boot. Wear at all times--do not apply any weight to R foot without boot in place. Keep R great toe dry in shower, wash separately with dsg changes. Optimal blood sugar control. Continue increased dietary protein and supplements. Increased risk for non healing and amputation has been discussed with patient due to her co morbidities. Continue close follow up with vascular surgeon. Follow up in 1 week. This note was generated with [email or web address] dictation software. It may contain incorrect words, spelling, and punctuation that were not noted in checking the note before signing.
[2017-09-03 11:51] VITALS: BP 134/70; PULSE 66; RESP 16; TEMP 36.2
--- NOTE | 2017-09-03 16:25 | PCM.WC.PN ---
(1) Non-pressure chronic ulcer of other part of right foot with fat layer exposed Status: Acute Current Visit: Yes Code(s): L97.512 - Non-pressure chronic ulcer of other part of right foot with fat layer exposed (2) Type 2 diabetes mellitus with foot ulcer Status: Acute Current Visit: Yes Qualifiers: Code(s): E11.621 - Type 2 diabetes mellitus with foot ulcer; L97.509 - Non-pressure chronic ulcer of other part of unspecified foot with unspecified severity (3) Peripheral vascular disease Status: Chronic Current Visit: Yes Code(s): I73.9 - Peripheral vascular disease, unspecified (4) Type 2 diabetes mellitus with diabetic peripheral angiopathy without gangrene Status: Chronic Current Visit: Yes Qualifiers: Code(s): E11.51 - Type 2 diabetes mellitus with diabetic peripheral angiopathy without gangrene (5) Type 2 diabetes mellitus with diabetic polyneuropathy Status: Chronic Current Visit: Yes Qualifiers: Code(s): E11.42 - Type 2 diabetes mellitus with diabetic polyneuropathy Type of Wound Date of Service: 09/03/17 Chief Complaint: Non-healing diabetic foot ulcer R great toe History of Wound: 67 year old woman with uncontrolled type 2 diabetes presents with non-healing diabetic foot ulcer plantar R great toe. Has a known history of PAD with multiple stent placements in the late 1990s and early 1999s. Has been treated at [facility] in [place] with promogran and dry dressing every other day. Offloading with CAM boot (not wearing today). Pt was to undergo an arterial bypass in 2014, but had an [place] 3 days before the procedure was to be done. Vascular surgeon is Dr. Herring in [place]. Pt denies pus, malodor, warmth, pain. Denies N/V/F/C. 08/18--Received Santyl on , and has been applying with dry gauze daily. Currently offloading with CAM boot with peg-assist offloading insert. Measurements improved today. Progress of Wound: Stable. No new complaints. - Physical Exam Vital Signs Temp Pulse Resp BP 97.1 F L 66 16 134/70 H 09/03/17 11:51 09/03/17 11:51 09/03/17 11:51 09/03/17 11:51 General: Alert, Oriented x3, Cooperative, No apparent distress HEENT: Atraumatic, Normocephalic Oral: Moist Mucosa Neck: Supple Lungs: Normal air movement Cardiovascular: Regular rate Extremities: No cyanosis, No edema Skin: Ulcer/ Wound Wound Measurements and Assessment WC - Nurse 1 - General Ulcer Measurement Start: 08/27/17 11:03 Freq: Status: Active Protocol: Activity Type Activity Date Activity User E-Sign Co-Sign Detail Recorded Client Recorded Date Recorded By Document 09/03/17 11:51 BERNABE [id number] 09/03/17 11:55 09/03/17 11:51 Wound Center Nurse 1 [Ulcer Assessment] #1 Right Great Toe- Plantar -Combined with other wound No -Current Size (cm) - Length 0.4 -Current Size (cm) - Width 0.3 -Current Size (cm) - Depth 0.2 -Total Square Cm 0.12 -Date of Last Picture (Recall this 08/11/17 field) -Photo Taken No -Epithelialization None Present -Tunneling No -Undermining/Tunneling No -Circular Undermining No -Classification - Thickness Full Thickness without Exposed Support Structure -Classification - Chung Grading ( Grade 2 Diabetic Ulcer) -Exudate Amt Small (1-33%) -Exudate Type Serous -Wound Margin Distinct, Outline Attached -Granulation Amt None Present (0 %) -Granulation Quality N/A -Slough/Fibrin Yes -Necrosis Amt None Present (0 %) -Necrotic Tissue Type Adherent Slough -Structure Exposed N/A -Texture (Dimple-wound Skin Appearance) No Abnormality -Moisture (Dimple-wound Skin Appearance Maceration ) -Color (Dimple-wound Skin Appearance) No Abnormality -Temperature (Dimple-wound Skin No Abnormality Appearance) (Pt Warm) -Tenderness on Palpation (Dimple-wound No Skin Appearance) -Ulcer Cleansing Rinsed/ Irrigated with Saline -Foul Odor after Cleansing No -Anesthetic Used 5% Lidocaine Gel [Edema Assessment] -Lower Limb Edema Present No WC - Nurse 2 - General Ulcer CM Notes Start: 08/27/17 11:03 Freq: Status: Active Protocol: Activity Type Activity Date Activity User E-Sign Co-Sign Detail Recorded Client Recorded Date Recorded By Document 09/03/17 13:05 DV [id number] 09/03/17 13:06 DV 09/03/17 13:05 Wound Center Nurse 2 [Procedure/Treatment] #1 Right Great Toe- Plantar -Time 13:06 -Correct Patient Yes -Correct Side, Site, Position Yes -Correct Procedure Yes -Procedure Performed Yes -Type of Procedure Debridement -Clinical Debridement Subcutaneous -Post Debridement Size (cm) - Length 0.4 -Post Debridement Size (cm) - Width 0.3 -Post Debridement Size (cm) - Depth 0.3 -Total Square Cm 0.12 -Wound/Ulcer Outcome Not Healed -Ulcer Cleansing Rinsed/ Irrigated with Saline -Foul Odor after Cleansing No -Bioengineered Tissue No -Bleeding Controlled with NA -Treatment Response Procedure Tolerated Well [See Physician Procedure note for Specifics] Pain Scale: 0-10 Numeric [Pain] -Is Patient Pain Free? Yes Musculoskeletal: No Muscle Wasting Neurological: Cranial nerves II-XII grossly intact Psych/Mental Status: Normal Affect Debridement Note Post-Debridement Measurements/Treatment WC - Nurse 2 - General Ulcer CM Notes Start: 08/27/17 11:03 Freq: Status: Active Protocol: Activity Type Activity Date Activity User E-Sign Co-Sign Detail Recorded Client Recorded Date Recorded By Document 08/27/17 12:07 DV [id number] 08/27/17 12:10 DV Document 09/03/17 13:05 DV [id number] 09/03/17 13:06 DV 08/27/17 09/03/17 12:07 13:05 Wound Center Nurse 2 #1 Right Great Toe- Plantar -Time 12:07 13:06 -Correct Patient Yes Yes -Correct Side, Site, Position Yes Yes -Correct Procedure Yes Yes -Procedure Performed Yes Yes -Type of Procedure Debridement Debridement -Clinical Debridement Subcutaneous Subcutaneous -Post Debridement Size (cm) - Length 0.5 0.4 -Post Debridement Size (cm) - Width 0.3 0.3 -Post Debridement Size (cm) - Depth 0.3 0.3 -Total Square Cm 0.15 0.12 -Wound/Ulcer Outcome Not Healed Not Healed -Ulcer Cleansing Rinsed/ Rinsed/ Irrigated with Irrigated with Saline Saline -Foul Odor after Cleansing No No -Bioengineered Tissue No No -Bleeding Controlled with Pressure NA -Treatment Response Procedure Procedure Tolerated Well Tolerated Well Pain Scale: 0-10 Numeric Is Patient Pain Free? Yes Yes Wound debrided: Right plantar ( Great toe ) Wound Grade/Stage: chung 1 Type of Debridement: Excisional debridement Anesthesia Used: 5% Lidocaine Gel Depth: Down to and including healthy tissue, in the subcutaneous layer Percentage of wound debrided: 100 Instrument Used: 3mm curette Tissue Removed: Devitalized tissue Severity: Fat Layer Exposed Amount of bleeding with debridement: None Patient tolerated procedure well Assessment/Plan Active Problems Type 2 diabetes mellitus with diabetic peripheral angiopathy without gangrene (Chronic) Non-pressure chronic ulcer of other part of right foot with fat layer exposed (Acute) Type 2 diabetes mellitus with foot ulcer (Acute) Type 2 diabetes mellitus with diabetic polyneuropathy (Chronic) Peripheral vascular disease (Chronic) Assessment: See diagnoses Plan: No new changes in the past week. Very gentle debridement again done due to PAD. No significant slough burden. Ok to switch to Airam daily. Continue to offload with CAM boot. Wear at all times--do not apply any weight to R foot without boot in place. Keep R great toe dry in shower, wash separately with dsg changes. Optimal blood sugar control. Continue increased dietary protein and supplements. Increased risk for non healing and amputation has been discussed with patient due to her co morbidities. Continue close follow up with vascular surgeon. Follow up in 1 week. This note was generated with [employer] dictation software. It may contain incorrect words, spelling, and punctuation that were not noted in checking the note before signing.
--- NOTE | 2017-09-03 16:30 | PN.PCM_ITS ---
(1) Non-pressure chronic ulcer of other part of right foot with fat layer exposed Status: Acute Current Visit: Yes Code(s): L97.512 - Non-pressure chronic ulcer of other part of right foot with fat layer exposed (2) Type 2 diabetes mellitus with foot ulcer Status: Acute Current Visit: Yes Qualifiers: Code(s): E11.621 - Type 2 diabetes mellitus with foot ulcer; L97.509 - Non- pressure chronic ulcer of other part of unspecified foot with unspecified severity (3) Peripheral vascular disease Status: Chronic Current Visit: Yes Code(s): I73.9 - Peripheral vascular disease, unspecified (4) Type 2 diabetes mellitus with diabetic peripheral angiopathy without gangrene Status: Chronic Current Visit: Yes Qualifiers: Code(s): E11.51 - Type 2 diabetes mellitus with diabetic peripheral angiopathy without gangrene (5) Type 2 diabetes mellitus with diabetic polyneuropathy Status: Chronic Current Visit: Yes Qualifiers: Code(s): E11.42 - Type 2 diabetes mellitus with diabetic polyneuropathy Type of Wound Date of Service: 09/03/17 Chief Complaint: Non-healing diabetic foot ulcer R great toe History of Wound: 67 year old woman with uncontrolled type 2 diabetes presents with non-healing diabetic foot ulcer plantar R great toe. Has a known history of PAD with multiple stent placements in the late 1990s and early 1999s. Has been treated at [facility] in [place] with promogran and dry dressing every other day. Offloading with CAM boot (not wearing today). Pt was to undergo an arterial bypass in 2014, but had an [place] 3 days before the procedure was to be done. Vascular surgeon is Dr. Herring in [place]. Pt denies pus, malodor, warmth, pain. Denies N/V/F/C. 08/18--Received Santyl on , and has been applying with dry gauze daily. Currently offloading with CAM boot with peg-assist offloading insert. Measurements improved today. Progress of Wound: Stable. No new complaints. - Physical Exam Vital Signs Temp Pulse Resp BP 97.1 F L 66 16 134/70 H 09/03/17 11:51 09/03/17 11:51 09/03/17 11:51 09/03/17 11:51 General: Alert, Oriented x3, Cooperative, No apparent distress HEENT: Atraumatic, Normocephalic Oral: Moist Mucosa Neck: Supple Lungs: Normal air movement Cardiovascular: Regular rate Extremities: No cyanosis, No edema Skin: Ulcer/ Wound Wound Measurements and Assessment WC - Nurse 1 - General Ulcer Measurement Start: 08/27/17 11:03 Freq: Status: Active Protocol: Activity Type Activity Date Activity User E-Sign Co-Sign Detail Recorded Client Recorded Date Recorded By Document 09/03/17 11:51 BERNABE [id number] 09/03/17 11:55 09/03/17 11:51 Wound Center Nurse 1 [Ulcer Assessment] #1 Right Great Toe- Plantar -Combined with other wound No -Current Size (cm) - Length 0.4 -Current Size (cm) - Width 0.3 -Current Size (cm) - Depth 0.2 -Total Square Cm 0.12 -Date of Last Picture (Recall this 08/11/17 field) -Photo Taken No -Epithelialization None Present -Tunneling No -Undermining/Tunneling No -Circular Undermining No -Classification - Thickness Full Thickness without Exposed Support Structure -Classification - Chung Grading ( Grade 2 Diabetic Ulcer) -Exudate Amt Small (1-33%) -Exudate Type Serous -Wound Margin Distinct, Outline Attached -Granulation Amt None Present (0 %) -Granulation Quality N/A -Slough/Fibrin Yes -Necrosis Amt None Present (0 %) -Necrotic Tissue Type Adherent Slough -Structure Exposed N/A -Texture (Dimple-wound Skin Appearance) No Abnormality -Moisture (Dimple-wound Skin Appearance Maceration ) -Color (Dimple-wound Skin Appearance) No Abnormality -Temperature (Dimple-wound Skin No Abnormality Appearance) (Pt Warm) -Tenderness on Palpation (Dimple-wound No Skin Appearance) -Ulcer Cleansing Rinsed/ Irrigated with Saline -Foul Odor after Cleansing No -Anesthetic Used 5% Lidocaine Gel [Edema Assessment] -Lower Limb Edema Present No WC - Nurse 2 - General Ulcer CM Notes Start: 08/27/17 11:03 Freq: Status: Active Protocol: Activity Type Activity Date Activity User E-Sign Co-Sign Detail Recorded Client Recorded Date Recorded By Document 09/03/17 13:05 DV [id number] 09/03/17 13:06 DV 09/03/17 13:05 Wound Center Nurse 2 [Procedure/Treatment] #1 Right Great Toe- Plantar -Time 13:06 -Correct Patient Yes -Correct Side, Site, Position Yes -Correct Procedure Yes -Procedure Performed Yes -Type of Procedure Debridement -Clinical Debridement Subcutaneous -Post Debridement Size (cm) - Length 0.4 -Post Debridement Size (cm) - Width 0.3 -Post Debridement Size (cm) - Depth 0.3 -Total Square Cm 0.12 -Wound/Ulcer Outcome Not Healed -Ulcer Cleansing Rinsed/ Irrigated with Saline -Foul Odor after Cleansing No -Bioengineered Tissue No -Bleeding Controlled with NA -Treatment Response Procedure Tolerated Well [See Physician Procedure note for Specifics] Pain Scale: 0-10 Numeric [Pain] -Is Patient Pain Free? Yes Musculoskeletal: No Muscle Wasting Neurological: Cranial nerves II-XII grossly intact Psych/Mental Status: Normal Affect Debridement Note Post-Debridement Measurements/Treatment WC - Nurse 2 - General Ulcer CM Notes Start: 08/27/17 11:03 Freq: Status: Active Protocol: Activity Type Activity Date Activity User E-Sign Co-Sign Detail Recorded Client Recorded Date Recorded By Document 08/27/17 12:07 DV [id number] 08/27/17 12:10 DV Document 09/03/17 13:05 DV [id number] 09/03/17 13:06 DV 08/27/17 09/03/17 12:07 13:05 Wound Center Nurse 2 #1 Right Great Toe- Plantar -Time 12:07 13:06 -Correct Patient Yes Yes -Correct Side, Site, Position Yes Yes -Correct Procedure Yes Yes -Procedure Performed Yes Yes -Type of Procedure Debridement Debridement -Clinical Debridement Subcutaneous Subcutaneous -Post Debridement Size (cm) - Length 0.5 0.4 -Post Debridement Size (cm) - Width 0.3 0.3 -Post Debridement Size (cm) - Depth 0.3 0.3 -Total Square Cm 0.15 0.12 -Wound/Ulcer Outcome Not Healed Not Healed -Ulcer Cleansing Rinsed/ Rinsed/ Irrigated with Irrigated with Saline Saline -Foul Odor after Cleansing No No -Bioengineered Tissue No No -Bleeding Controlled with Pressure NA -Treatment Response Procedure Procedure Tolerated Well Tolerated Well Pain Scale: 0-10 Numeric Is Patient Pain Free? Yes Yes Wound debrided: Right plantar ( Great toe ) Wound Grade/Stage: chung 1 Type of Debridement: Excisional debridement Anesthesia Used: 5% Lidocaine Gel Depth: Down to and including healthy tissue, in the subcutaneous layer Percentage of wound debrided: 100 Instrument Used: 3mm curette Tissue Removed: Devitalized tissue Severity: Fat Layer Exposed Amount of bleeding with debridement: None Patient tolerated procedure well Assessment/Plan Active Problems Type 2 diabetes mellitus with diabetic peripheral angiopathy without gangrene ( Chronic) Non-pressure chronic ulcer of other part of right foot with fat layer exposed ( Acute) Type 2 diabetes mellitus with foot ulcer (Acute) Type 2 diabetes mellitus with diabetic polyneuropathy (Chronic) Peripheral vascular disease (Chronic) Assessment: See diagnoses Plan: No new changes in the past week. Very gentle debridement again done due to PAD. No significant slough burden. Ok to switch to Airam daily. Continue to offload with CAM boot. Wear at all times--do not apply any weight to R foot without boot in place. Keep R great toe dry in shower, wash separately with dsg changes. Optimal blood sugar control. Continue increased dietary protein and supplements. Increased risk for non healing and amputation has been discussed with patient due to her co morbidities. Continue close follow up with vascular surgeon. Follow up in 1 week. This note was generated with [employer] dictation software. It may contain incorrect words, spelling, and punctuation that were not noted in checking the note before signing.
[2017-09-10 11:22] VITALS: BP 121/67; PULSE 74; RESP 18; TEMP 35.9
--- NOTE | 2017-09-10 12:15 | PCM.WC.PN ---
(1) Non-pressure chronic ulcer of other part of right foot with fat layer exposed Status: Acute Current Visit: Yes Code(s): L97.512 - Non-pressure chronic ulcer of other part of right foot with fat layer exposed (2) Type 2 diabetes mellitus with foot ulcer Status: Acute Current Visit: Yes Qualifiers: Code(s): E11.621 - Type 2 diabetes mellitus with foot ulcer; L97.509 - Non-pressure chronic ulcer of other part of unspecified foot with unspecified severity (3) Peripheral vascular disease Status: Chronic Current Visit: Yes Code(s): I73.9 - Peripheral vascular disease, unspecified (4) Type 2 diabetes mellitus with diabetic peripheral angiopathy without gangrene Status: Chronic Current Visit: Yes Qualifiers: Code(s): E11.51 - Type 2 diabetes mellitus with diabetic peripheral angiopathy without gangrene (5) Type 2 diabetes mellitus with diabetic polyneuropathy Status: Chronic Current Visit: Yes Qualifiers: Code(s): E11.42 - Type 2 diabetes mellitus with diabetic polyneuropathy Type of Wound Date of Service: 09/10/17 Chief Complaint: Non-healing diabetic foot ulcer R great toe History of Wound: 67 year old woman with uncontrolled type 2 diabetes presents with non-healing diabetic foot ulcer plantar R great toe. Has a known history of PAD with multiple stent placements in the late 1990s and early 1999s. Has been treated at [facility] in [place] with promogran and dry dressing every other day. Offloading with CAM boot (not wearing today). Pt was to undergo an arterial bypass in 2014, but had an AL 3 days before the procedure was to be done. Vascular surgeon is Dr. Herring in [place]. Pt denies pus, malodor, warmth, pain. Denies N/V/F/C. 08/18--Received Santyl on , and has been applying with dry gauze daily. Currently offloading with CAM boot with peg-assist offloading insert. Measurements improved today. Progress of Wound: Stable. No new complaints. - Physical Exam Vital Signs Temp Pulse Resp BP 96.7 F L 74 18 121/67 H 09/10/17 11:22 09/10/17 11:22 09/10/17 11:22 09/10/17 11:22 General: Alert, Oriented x3, Cooperative, No apparent distress HEENT: Atraumatic, Normocephalic Oral: Moist Mucosa Neck: Supple Lungs: Normal air movement Abdomen: Obese Extremities: No cyanosis Skin: Ulcer/ Wound Wound Measurements and Assessment WC - Nurse 1 - General Ulcer Measurement Start: 08/27/17 11:03 Freq: Status: Active Protocol: Activity Type Activity Date Activity User E-Sign Co-Sign Detail Recorded Client Recorded Date Recorded By Document 09/10/17 11:22 RB [id number] 09/10/17 11:33 RB 09/10/17 11:22 Wound Center Nurse 1 [Ulcer Assessment] #1 Right Great Toe- Plantar -Combined with other wound No -Current Size (cm) - Length 0.5 -Current Size (cm) - Width 0.3 -Current Size (cm) - Depth 0.2 -Total Square Cm 0.15 -Photo Taken Yes -Tunneling No -Undermining/Tunneling Yes -Undermining/Tunneling Starts (O' 12 clock) -Undermining/Tunneling Ends (O'clock) 12 -Maximum Distance (cm) 0.3 -Circular Undermining Yes -Classification - Chung Grading ( Grade 2 Diabetic Ulcer) -Exudate Amt Small (1-33%) -Exudate Type Serosanguineous -Wound Margin Thickened -Granulation Amt Medium (34-66%) -Granulation Quality [place] -Slough/Fibrin Yes -Necrosis Amt Small (1-33%) -Necrotic Tissue Type Adherent Slough -Structure Exposed N/A -Texture (Dimple-wound Skin Appearance) Callus -Moisture (Dimple-wound Skin Appearance Assessed ) -Color (Dimple-wound Skin Appearance) Assessed -Tenderness on Palpation (Dimple-wound No Skin Appearance) -Ulcer Cleansing Rinsed/ Irrigated with Saline -Foul Odor after Cleansing No -Anesthetic Used 5% Lidocaine Gel [Edema Assessment] -Lower Limb Edema Present Yes -Right Calf (cm) 37 -Right Ankle (cm) 20.7 Musculoskeletal: No Muscle Wasting Neurological: Cranial nerves II-XII grossly intact Psych/Mental Status: Normal Affect Debridement Note Post-Debridement Measurements/Treatment WC - Nurse 2 - General Ulcer CM Notes Start: 08/27/17 11:03 Freq: Status: Active Protocol: Activity Type Activity Date Activity User E-Sign Co-Sign Detail Recorded Client Recorded Date Recorded By Document 08/27/17 12:07 DV [id number] 08/27/17 12:10 DV Document 09/03/17 13:05 DV [id number] 09/03/17 13:06 DV 08/27/17 09/03/17 12:07 13:05 Wound Center Nurse 2 #1 Right Great Toe- Plantar -Time 12:07 13:06 -Correct Patient Yes Yes -Correct Side, Site, Position Yes Yes -Correct Procedure Yes Yes -Procedure Performed Yes Yes -Type of Procedure Debridement Debridement -Clinical Debridement Subcutaneous Subcutaneous -Post Debridement Size (cm) - Length 0.5 0.4 -Post Debridement Size (cm) - Width 0.3 0.3 -Post Debridement Size (cm) - Depth 0.3 0.3 -Total Square Cm 0.15 0.12 -Wound/Ulcer Outcome Not Healed Not Healed -Ulcer Cleansing Rinsed/ Rinsed/ Irrigated with Irrigated with Saline Saline -Foul Odor after Cleansing No No -Bioengineered Tissue No No -Bleeding Controlled with Pressure NA -Treatment Response Procedure Procedure Tolerated Well Tolerated Well Pain Scale: 0-10 Numeric Is Patient Pain Free? Yes Yes Wound debrided: Right great toe ( plantar ) Wound Grade/Stage: Stage II Type of Debridement: Excisional debridement Anesthesia Used: 5% Lidocaine Gel Depth: Down to and including healthy tissue, in the subcutaneous layer Percentage of wound debrided: 100 Instrument Used: 3mm curette Tissue Removed: Devitalized tissue Severity: Fat Layer Exposed Amount of bleeding with debridement: None Patient tolerated procedure well Assessment/Plan Active Problems Type 2 diabetes mellitus with diabetic peripheral angiopathy without gangrene (Chronic) Non-pressure chronic ulcer of other part of right foot with fat layer exposed (Acute) Type 2 diabetes mellitus with foot ulcer (Acute) Type 2 diabetes mellitus with diabetic polyneuropathy (Chronic) Peripheral vascular disease (Chronic) Assessment: See diagnoses Plan: No new changes in the past week. Very gentle debridement again done due to PAD. No significant slough burden. Continue Prismal daily. Continue to offload with CAM boot. Wear at all times--do not apply any weight to R foot without boot in place. Keep R great toe dry in shower, wash separately with dsg changes. Optimal blood sugar control. Continue increased dietary protein and supplements. Increased risk for non healing and amputation has been discussed with patient due to her co morbidities. Continue close follow up with vascular surgeon. Follow up in 1 week. This note was generated with [employer] software. It may contain incorrect words, spelling, and punctuation that were not noted in checking the note before signing.
== END 2017-09-24 23:59 ==
LOC: WC 11:00
PROVIDERS: Family Provider Family Medicine; PCP Family Medicine; Visit Provider Internal Medicine
DX: E11.621 Type 2 diabetes mellitus with foot ulcer (principal); L97.512 Non-pressure chronic ulcer of other part of right foot with fat layer exposed; L97.509 Non-pressure chronic ulcer of other part of unspecified foot with unspecified severity; I73.9 Peripheral vascular disease, unspecified; E11.51 Type 2 diabetes mellitus with diabetic peripheral angiopathy without gangrene; E11.42 Type 2 diabetes mellitus with diabetic polyneuropathy
CPT/HCPCS: 11042